=== PATIENT | female | born 1995 | race Asian ===

== ENCOUNTER → 2018-04-26 | Emergency (ER) | payer MEDICAID ==
[~2018-04-26] VITALS: Ht 157.5 cm; Wt 59.1 kg
[~2018-04-26] MED LIST: CefTRIAXone/D5W-Rocephin 1gm 50 ML IV ONE; magnesium 2GM in 50ml NS 50 ML IV ONE; morphine 4 MG/ML inj SYRINge IV ONE; normal saline 1000ML IV soln IVB ONE; potassium 10mEq/100ml NS w/LIDOcaine (10mg/bag) IV ONE
[2018-04-26 03:36] LABS: CLARITY,URINE CLOUDY (Clear); COLOR,URINE YELLOW (Yellow); GLUCOSE, URINE NEGATIVE (Neg); KETONES,URINE TRACE mg/dl (Neg); LEUKOCYTE ESTERASE ,URINE TRACE (Neg); NITRITES, URINE NEGATIVE (Neg); OCCULT BLOOD,URINE NEGATIVE (Neg); PROTEIN,URINE NEGATIVE (Neg)
[2018-04-26 03:43] LABS: UA COLLECTION TYPE CLN CATCH MIDSTREAM
[2018-04-26 03:45] LABS: AMORPHOUS PHOSPHATES 1+; BACTERIA,URINE FEW /HPF (Neg); RBC,URINE NONE SEEN /HPF (0-2); SQUAMOUS EPITHELIAL CELL,UR FEW /LPF (FEW)
[2018-04-26 03:53] LABS: BASOPHILS % (AUTO) 0.1 % (0-1); EOSINOPHILS # (AUTO) 0.3 X10'3 (0-0.9); EOSINOPHILS % (AUTO) 1.7 % (0-6); HEMATOCRIT 36.9 % (35.0-45.0); HEMOGLOBIN 12.2 g/dl (12.0-16.0); LYMPHOCYTES # (AUTO) 1.8 X10'3 (1.1-4.8); LYMPHOCYTES % (AUTO) 10.5 % (21-51); MEAN CORPUSCULAR HEMOGLOBIN 28.7 PG (27.0-31.0); MEAN CORPUSCULAR HGB CONC 33.1 g/dL (33.0-36.5); MEAN CORPUSCULAR VOLUME 86.6 FL (78-98); MEAN PLATELET VOLUME 7.4 FL (7.4-10.4); MONOCYTES # (AUTO) 1.3 X10'3 (0-0.9); MONOCYTES % (AUTO) 7.5 % (2-12); NEUTROPHILS # (AUTO) 13.8 X10'3 (1.8-7.7); NEUTROPHILS % (AUTO) 80.2 % (42-75); PLATELET COUNT 348 X10'3 (140-440); RED BLOOD COUNT 4.26 X10'6 (4.20-5.60); WHITE BLOOD COUNT 17.3 X10'3 (4.5-11.0)
[2018-04-26 04:02] LABS: ALANINE AMINOTRANSFERASE 44 U/L (12-78); ALBUMIN 2.8 G/DL (3.4-5.0); ALBUMIN/GLOBULIN RATIO 0.7 (1.1-1.5); ALKALINE PHOSPHATASE 140 IU/L (46-116); ANION GAP 10 (8-16); ASPARTATE AMINO TRANSFERASE 34 U/L (10-37); BILIRUBIN,TOTAL 0.7 MG/DL (0.1-1.0); BLOOD UREA NITROGEN 7 MG/DL (7-18); BUN/CREATININE RATIO 10.6 (6.6-38.0); CALCIUM 8.7 MG/DL (8.5-10.1); CHLORIDE 103 MMOL/L (99-107); CREATININE 0.66 MG/DL (0.40-0.90); GLUCOSE 101 MG/DL (70-104); LIPASE 157 U/L (73-393); POTASSIUM 3.4 MMOL/L (3.5-5.1); SODIUM 140 MMOL/L (135-145); TOTAL CARBON DIOXIDE 26.9 MMOL/L (24-32); TOTAL PROTEIN 6.8 G/DL (6.4-8.2); eGFR > 90 ML/MIN
--- NOTE | 2018-04-26 05:40 | NUR ---
CALLED [facility] FOR PATIENT TRANSFER. THEY DENIED THE TRANSFER DUE TO BEING CLOSED UNLESS IT WAS A STEMI, STROKE OR TRAUMA.
--- NOTE | 2018-04-26 05:41 | NUR ---
CALLED [facility] FOR TRANSFER PENDING DUE TO SURGEN CONSULTING WITH OB DOCTOR. THEY WILL CALL BACK AFTER 0600
--- NOTE | 2018-04-26 05:41 | NUR ---
CALLED [facility] FOR TRANSFER BUT WAS DENIED DUE TO THEM NOT HAVING ANY BEDS.
--- NOTE | 2018-04-26 06:16 | NUR ---
[facility] CALLED BACK AND DENIED PT. DUE TO THEIR SURGEON STATING THAT SHE NEEDS A SPECIAL EDUCATION SUPERINTENDENT BACKUP WHICH THEY DO NOT HAVE. REFFERED US TO TRY ANNABEL, GEOVANNA HAIR OR JADEN SUAREZ.
--- NOTE | 2018-04-26 06:40 | NUR ---
Assumed care of pt. Awaiting transfer to another facility. VSS. Denies pain. Up to bathroom with no assist. Will continue to monitor.
[2018-04-26 07:00] LABS: MAGNESIUM 1.9 MG/DL (1.5-2.4)
[2018-04-26 14:47] VITALS: BP 123/71
== END | disposition home or self-care (01) ==
LOC: ER 02:20
DX: O99.612 Diseases of the digestive system complicating pregnancy, second trimester (principal); K81.9 Cholecystitis, unspecified; O26.892 Other specified pregnancy related conditions, second trimester; R10.11 Right upper quadrant pain; R10.13 Epigastric pain; Z3A.26 26 weeks gestation of pregnancy
CPT/HCPCS: 36415; 76700; 76805; 80053; 81001; 83690; 83735; 85025; 87088; 96365; 96367; 99291; J0696; J3475; J3480; J7030